=== PATIENT | female | born 1950 | race Caucasian/White ===

== ENCOUNTER → 2023-07-22 | Emergency (ER) | payer BC, MEDICAID, MEDICARE ==
[~2023-07-22] VITALS: Ht 167.6 cm; Wt 84.5 kg
[2023-07-22] VITALS (7 sets, daily range): BP systolic 129–162; BP diastolic 68–92; PULSE 78–85; RESP 14–16; TEMP 97.7; O2SAT 93–98
[~2023-07-22] MED LIST: ASPI81TA44 PO; CEPH500C2 PO; CYCL-1 PO; HYDR-3965 PO; HYDR25TA4 PO; IBUP-1985 PO; LISI20TA28 PO; MELO-102 PO; PRAV20TA4 PO; ceFAZolin 1000mg inj ONE; famotidine 20mg tablet PO ONE; fentaNYL/PF 50MCG/1 ML 2ML syringe IV PRN; fentaNYL/PF 50MCG/1 ML 2ML syringe ONE; hydrALAZINE 20mg/ml inj. IV PRN; iohexol 300 MG/1 ML 50ml polymer ONE; labetalol 20mg/4ml (5mg/ml) syringe IV PRN; meperidine/PF 25mg/ml syringe IV PRN; midazolam 1 mg/ML 2ml injection ONE; morphine 2 MG/ML inj. syringe IV PRN; morphine 4 MG/ML inj SYRINge IV ONE; morphine 4 MG/ML inj SYRINge IV PRN; normal saline 1000ml 1,000 ML IV ONE; ondansetron/PF 4mg/2ml inj IV ONE; ondansetron/PF 4mg/2ml inj IV PRN; potassium Cl 20 mEq SR tablet PO STA; proCHLORperazine 10 MG/2 ml inj IV PRN; propofol inj 20 ML IV ONE; ringers solution, lacted 1,000 ML IV ONE; ringers solution, lacted 1,000 ML IV SCH; sevoflurane 250ml liquid IH ONE
[2023-07-22 08:27] LABS: BASOPHILS % (AUTO) 0.2 % (0-1); EOSINOPHILS # (AUTO) 0.1 X10'3 (0-0.9); EOSINOPHILS % (AUTO) 0.4 % (0-6); HEMATOCRIT 42.5 % (35.0-45.0); HEMOGLOBIN 13.8 g/dl (12.0-16.0); LYMPHOCYTES # (AUTO) 1.4 X10'3 (1.1-4.8); LYMPHOCYTES % (AUTO) 9.1 % (21-51); MEAN CORPUSCULAR HEMOGLOBIN 25.2 PG (27.0-31.0); MEAN CORPUSCULAR HGB CONC 32.5 g/dL (33.0-36.5); MEAN CORPUSCULAR VOLUME 77.6 FL (78-98); MEAN PLATELET VOLUME 7.9 FL (7.4-10.4); MONOCYTES # (AUTO) 0.8 X10'3 (0-0.9); MONOCYTES % (AUTO) 5.2 % (2-12); NEUTROPHILS # (AUTO) 12.8 X10'3 (1.8-7.7); NEUTROPHILS % (AUTO) 85.1 % (42-75); PLATELET COUNT 469 X10'3 (140-440); RED BLOOD COUNT 5.48 X10'6 (4.20-5.60); RED CELL DISTRIBUTION WIDTH 17.3 % (11.5-14.5); WHITE BLOOD COUNT 15.1 X10'3 (4.5-11.0)
[2023-07-22 08:39] LABS: BILIRUBIN,URINE NEGATIVE (Neg); CLARITY,URINE SLIGHTLY CLOUDY (Clear); COLOR,URINE YELLOW (Yellow); GLUCOSE, URINE >=1000 mg/dl (Neg); KETONES,URINE NEGATIVE (Neg); LEUKOCYTE ESTERASE ,URINE NEGATIVE (Neg); NITRITES, URINE NEGATIVE (Neg); OCCULT BLOOD,URINE SMALL (Neg); PH,URINE 5.5 (4.8-8.0); PROTEIN,URINE NEGATIVE (Neg); UROBILINOGEN,URINE 0.2 E.U/dL (0.2-1.0)
[2023-07-22 08:42] LABS: UA COLLECTION TYPE CLN CATCH MIDSTREAM
[2023-07-22 08:59] LABS: ALANINE AMINOTRANSFERASE 19 U/L (12-78); ALBUMIN 4.1 G/DL (3.4-5.0); ALBUMIN/GLOBULIN RATIO 1.1 (1.1-1.5); ALKALINE PHOSPHATASE 84 IU/L (46-116); ANION GAP 12 (8-16); ASPARTATE AMINO TRANSFERASE 18 U/L (10-37); BILIRUBIN,TOTAL 0.6 MG/DL (0.1-1.0); BLOOD UREA NITROGEN 17 MG/DL (7-18); BUN/CREATININE RATIO 16.2 (10.0-20.0); CALCIUM 10.5 MG/DL (8.5-10.1); CHLORIDE 101 MMOL/L (99-107); CREATININE 1.05 MG/DL (0.40-0.90); GLUCOSE 146 MG/DL (70-104); LIPASE 109 U/L (73-393); SODIUM 138 MMOL/L (135-145); TOTAL CARBON DIOXIDE 24.9 MMOL/L (24-32); TOTAL PROTEIN 7.8 G/DL (6.4-8.2); eCRCL 46 ML/MIN; eGFR 52 ML/MIN
[2023-07-22 09:04] LABS: POTASSIUM 2.9 MMOL/L (3.5-5.1)
[2023-07-22 09:20] LABS: HYALINE CASTS 0-3 /LPF (NEGATIVE); MUCUS STRANDS FEW /LPF (Neg); SQUAMOUS EPITHELIAL CELL,UR MODERATE /LPF (FEW)
[2023-07-22 09:21] LABS: BACTERIA,URINE 1+ /HPF (Neg); TRANSITIONAL EPI CELLS,URINE FEW /HPF
--- NOTE | 2023-07-22 10:53 | NUR ---
pt ambulated to bathroom unassisted
--- NOTE | 2023-07-22 14:48 | NUR ---
PATIENT RECEIVED FROM OR. RESPONDS TO VERBAL COMMANDS. VSS ON 10L MASK AT 98% SATURATION. RIGHT AC WITH LR RUNNING. NO DRESSING SITES DUE TO CYSTOSCOPY.
--- NOTE | 2023-07-22 16:08 | NUR ---
ALL DISCHARGE CRITERIA HAS BEEN MET. VSS, PAIN AT TOLERABLE LEVEL. ABLE TO SAFELY AMBULATE AND TRANSFER SELF. VOIDED X2 IV TAKEN OUT WITHOUT ANY COMPLICATIONS. ALL DISCHARGE INSTRUCTIONS COVERED WITH PATIENT AND ALL QUESTIONS ANSWERED. PATIENT TAKEN OUT VIA WHEELCHAIR TO PERSONAL VEHICLE WHERE FAMILY/FRIEND DROVE PATIENT HOME.
== END | disposition home or self-care (01) ==
LOC: ER 06:41
DX: N20.0 Calculus of kidney (principal); N13.2 Hydronephrosis with renal and ureteral calculous obstruction; Z88.0 Allergy status to penicillin; Z79.82 Long term (current) use of aspirin; Z79.899 Other long term (current) drug therapy
CPT/HCPCS: 36415; 52005; 71045; 74176; 76000; 80053; 81001; 83690; 84132; 84145; 85025; 87088; 93005; 96361; 96374; 96375; 99285; C1758; C1769; C2617; J0690; J2250; J2270; J2405; J2704; J3010; J7030; J7120; Q9967; Z7506; Z7512; A4618

== ENCOUNTER 2024-04-14 16:32 | Outpatient (CLI) | payer MEDICARE, MEDICAID ==
[~2024-04-14 16:32] MED LIST changes: -CEPH500C2 PO; -ceFAZolin 1000mg inj ONE; -famotidine 20mg tablet PO ONE; -fentaNYL/PF 50MCG/1 ML 2ML syringe IV PRN; -fentaNYL/PF 50MCG/1 ML 2ML syringe ONE; -hydrALAZINE 20mg/ml inj. IV PRN; -iohexol 300 MG/1 ML 50ml polymer ONE; -labetalol 20mg/4ml (5mg/ml) syringe IV PRN; -meperidine/PF 25mg/ml syringe IV PRN; -midazolam 1 mg/ML 2ml injection ONE; -morphine 2 MG/ML inj. syringe IV PRN; -morphine 4 MG/ML inj SYRINge IV ONE; -morphine 4 MG/ML inj SYRINge IV PRN; -normal saline 1000ml 1,000 ML IV ONE; -ondansetron/PF 4mg/2ml inj IV ONE; -ondansetron/PF 4mg/2ml inj IV PRN; -potassium Cl 20 mEq SR tablet PO STA; -proCHLORperazine 10 MG/2 ml inj IV PRN; -propofol inj 20 ML IV ONE; -ringers solution, lacted 1,000 ML IV ONE; -ringers solution, lacted 1,000 ML IV SCH; -sevoflurane 250ml liquid IH ONE
== END 2024-04-14 23:59 | disposition home or self-care (01) ==
LOC: RAD 16:32
PROVIDERS: ATTEND Specialist
DX: M19.011 Primary osteoarthritis, right shoulder (principal); M25.511 Pain in right shoulder; M25.811 Other specified joint disorders, right shoulder
CPT/HCPCS: 73200

== ENCOUNTER 2024-05-03 07:21 | Day surgery (SDC) | payer MEDICARE, MEDICAID ==
[2024-04-29 16:17] LABS: BILIRUBIN,URINE NEGATIVE (Neg); CLARITY,URINE CLEAR (Clear); COLOR,URINE YELLOW (Yellow); GLUCOSE, URINE NEGATIVE (Neg); KETONES,URINE TRACE mg/dl (Neg); LEUKOCYTE ESTERASE ,URINE NEGATIVE (Neg); NITRITES, URINE NEGATIVE (Neg); OCCULT BLOOD,URINE NEGATIVE (Neg); PH,URINE 5.5 (4.8-8.0); PROTEIN,URINE NEGATIVE (Neg); UROBILINOGEN,URINE 0.2 E.U/dL (0.2-1.0)
[2024-04-29 16:19] LABS: UA COLLECTION TYPE CLN CATCH MIDSTREAM
[2024-04-29 16:29] LABS: APTT 29 SECONDS (22-32); PROTHROMBIN TIME 10.9 SECONDS (9.0-12.0)
[~2024-05-03] VITALS: Ht 167.6 cm; Wt 78.0 kg
[2024-05-03] VITALS (17 sets, daily range): BP systolic 110–174; BP diastolic 49–86; PULSE 55–70; RESP 12–18; TEMP 97.3–98.4; O2SAT 90–98
[2024-05-03] MEDS: tranexamic acid inj. 1,000 MG in normal saline IV soln 100ML IV ONE (05:30)
[2024-05-03] MEDS: cefazolin 2gm/D5W 100mL 100 ML IV ONE (05:30)
[2024-05-03] MEDS: famotidine 20mg tablet PO ONE (05:30)
[~2024-05-03 07:21] MED LIST changes: +ASHWAGANDA; -ASPI81TA44 PO; +ATOR40TA72 PO; +CALCIUM MAGNESIUM; -CYCL-1 PO; +DULA0.75 SQ; +ELDERBERRY; +EMPA25TA PO; -HYDR-3965 PO; -HYDR25TA4 PO; -IBUP-1985 PO; +LIONS MANE; +METF-900 PO; -PRAV20TA4 PO; +VITAMIN B 12; +VITAMIN B 6; +VITAMIN C; +VITAMIN E
[2024-05-03] MEDS: vancomycin 1,000mg inj ONE (08:28)
[2024-05-03] MEDS: gelatin sponge, absorbable (Gelfoam 100) sponge TP ONE (09:17)
[2024-05-03] MEDS: Thrombin (Bovine) 5,000 unit vial TP ONE (09:17)
[2024-05-03] MEDS ORDERED: bisacodyl 10mg suppository rectal RC PRN (09:50)
[2024-05-03] MEDS ORDERED: magnesium hydroxide 30ml (MOM) UD suspension PO PRN (09:50)
[2024-05-03] MEDS ORDERED: ondansetron/PF 4mg/2ml inj IV PRN ×2 (09:50→12:20)
[2024-05-03] MEDS ORDERED: naloxone 0.4 mg/ml inj IV PRN (09:50)
[2024-05-03] MEDS ORDERED: diphenhydrAMINE 25mg capsule PO PRN (09:50)
[2024-05-03] MEDS ORDERED: acetaminophen 325mg tablet PO PRN (09:50)
[2024-05-03] MEDS ORDERED: sevoflurane 250ml liquid IH ONE (09:54)
[2024-05-03] MEDS ORDERED: propofol inj 20 ML IV ONE (09:55)
[2024-05-03] MEDS ORDERED: midazolam 1 mg/ML 2ml injection ONE (09:55)
[2024-05-03] MEDS ORDERED: fentaNYL/PF 50MCG/1 ML 2ML syringe ONE ×2 (09:55→11:18)
[2024-05-03] MEDS ORDERED: ROPIVAcaine 0.5% (5mg/ml) 30ml vial ONE (10:03)
[2024-05-03] MEDS: vancomycin 1,000mg inj IVT ONE (10:57)
[2024-05-03] MEDS ORDERED: ondansetron/PF 4mg/2ml inj ONE (11:49)
[2024-05-03] MEDS ORDERED: dexamethasone sod phosphate 4mg/ml inj. ONE (11:49)
[2024-05-03] MEDS: ringers solution, lacted 1,000 ML IV SCH ×2 (12:08→12:20)
[2024-05-03] MEDS: methylene blue (5mg/ml) 50mg/10ml ampul IV ONE (12:08)
[2024-05-03] MEDS ORDERED: proCHLORperazine 10 MG/2 ml inj IV PRN (12:20)
[2024-05-03] MEDS ORDERED: morphine 4 MG/ML inj SYRINge IV PRN (12:20)
[2024-05-03] MEDS ORDERED: meperidine/PF 25mg/ml syringe IV PRN ×3 (12:20)
[2024-05-03] MEDS ORDERED: morphine 2 MG/ML inj. syringe IV PRN (12:20)
[2024-05-03 14:56] LABS: BASOPHILS % (AUTO) 0.2 % (0-1); EOSINOPHILS % (AUTO) 0.1 % (0-6); HEMATOCRIT 36.2 % (35.0-45.0); HEMOGLOBIN 11.5 g/dl (12.0-16.0); LYMPHOCYTES # (AUTO) 0.8 X10'3 (1.1-4.8); LYMPHOCYTES % (AUTO) 4.9 % (21-51); MEAN CORPUSCULAR HGB CONC 31.7 g/dL (33.0-36.5); MEAN CORPUSCULAR VOLUME 69.4 FL (78-98); MEAN PLATELET VOLUME 7.6 FL (7.4-10.4); MONOCYTES # (AUTO) 0.2 X10'3 (0-0.9); MONOCYTES % (AUTO) 1.4 % (2-12); NEUTROPHILS # (AUTO) 14.8 X10'3 (1.8-7.7); NEUTROPHILS % (AUTO) 93.4 % (42-75); PLATELET COUNT 340 X10'3 (140-440); RED BLOOD COUNT 5.21 X10'6 (4.20-5.60); RED CELL DISTRIBUTION WIDTH 21.5 % (11.5-14.5); WHITE BLOOD COUNT 15.8 X10'3 (4.5-11.0)
[2024-05-03 15:11] LABS: ALANINE AMINOTRANSFERASE 24 U/L (12-78); ALBUMIN 3.6 G/DL (3.4-5.0); ALKALINE PHOSPHATASE 75 IU/L (46-116); ANION GAP 8 (8-16); ASPARTATE AMINO TRANSFERASE 20 U/L (10-37); BILIRUBIN,TOTAL 0.3 MG/DL (0.1-1.0); BLOOD UREA NITROGEN 20 MG/DL (7-18); BUN/CREATININE RATIO 32.8 (10.0-20.0); CALCIUM 9.1 MG/DL (8.5-10.1); CHLORIDE 106 MMOL/L (99-107); CREATININE 0.61 MG/DL (0.40-0.90); GLUCOSE 121 MG/DL (70-104); POTASSIUM 3.8 MMOL/L (3.5-5.1); SODIUM 142 MMOL/L (135-145); TOTAL CARBON DIOXIDE 27.7 MMOL/L (24-32); TOTAL PROTEIN 7.1 G/DL (6.4-8.2); eCRCL 79 ML/MIN; eGFR > 90 ML/MIN
[2024-05-03] MEDS ORDERED: DULAGLUTIDE 0.75 MG SQ SCH (15:25)
[2024-05-03] MEDS: potassium cl 20mEq in 1/2 NS 1,000 ML IV SCH (16:21)
[2024-05-03 16:58] LABS: ANISOCYTOSIS 3+; HYPOCHROMASIA 1+; MICROCYTOSIS 2+; PLATELET ESTIMATE NORMAL
[2024-05-03 16:59] LABS: TARGET CELLS FEW; TEAR DROP CELLS FEW
[2024-05-03] MEDS: cefazolin 2gm/D5W 100mL 100 ML IV SCH (19:25)
[2024-05-03] MEDS: METFORMIN HCL 500 MG PO SCH (20:00)
[2024-05-03] MEDS: lisinopril 20mg tablet PO SCH (20:24)
[2024-05-04 02:00] VITALS: BP 139/81; PULSE 71; RESP 16; TEMP 98.2; O2SAT 94
[2024-05-04] MEDS: HYDROcodone/acetaminophen 5mg/325mg tablet PO PRN ×2 (02:13→09:14)
[2024-05-04] MEDS: ketorolac tromethamine 15mg/ml inj. IV ONE (05:25)
[2024-05-04 06:00] VITALS: BP 148/74; PULSE 71; RESP 18; TEMP 97.1; O2SAT 97
[2024-05-04 07:39] LABS: BASOPHILS % (AUTO) 0.2 % (0-1); EOSINOPHILS % (AUTO) 0.2 % (0-6); HEMATOCRIT 31.4 % (35.0-45.0); HEMOGLOBIN 9.7 g/dl (12.0-16.0); LYMPHOCYTES # (AUTO) 2.2 X10'3 (1.1-4.8); LYMPHOCYTES % (AUTO) 15.5 % (21-51); MEAN CORPUSCULAR HEMOGLOBIN 21.3 PG (27.0-31.0); MEAN CORPUSCULAR VOLUME 68.8 FL (78-98); MEAN PLATELET VOLUME 8.2 FL (7.4-10.4); MONOCYTES # (AUTO) 1.5 X10'3 (0-0.9); MONOCYTES % (AUTO) 10.6 % (2-12); NEUTROPHILS # (AUTO) 10.3 X10'3 (1.8-7.7); NEUTROPHILS % (AUTO) 73.5 % (42-75); PLATELET COUNT 337 X10'3 (140-440); RED BLOOD COUNT 4.56 X10'6 (4.20-5.60)
[2024-05-04 07:51] LABS: % IRON SATURATION 5 % (11-46); IRON 18 UG/DL (49-151); TOTAL IRON BINDING CAPACITY 354 UG/DL (259-388)
[2024-05-04 08:05] LABS: ALANINE AMINOTRANSFERASE 23 U/L (12-78); ALBUMIN 3.1 G/DL (3.4-5.0); ALBUMIN/GLOBULIN RATIO 0.9 (1.1-1.5); ALKALINE PHOSPHATASE 64 IU/L (46-116); ANION GAP 8 (8-16); ASPARTATE AMINO TRANSFERASE 20 U/L (10-37); BILIRUBIN,TOTAL 0.4 MG/DL (0.1-1.0); BLOOD UREA NITROGEN 15 MG/DL (7-18); BUN/CREATININE RATIO 27.3 (10.0-20.0); CALCIUM 8.9 MG/DL (8.5-10.1); CHLORIDE 105 MMOL/L (99-107); CREATININE 0.55 MG/DL (0.40-0.90); GLUCOSE 106 MG/DL (70-104); POTASSIUM 3.6 MMOL/L (3.5-5.1); SODIUM 139 MMOL/L (135-145); TOTAL CARBON DIOXIDE 25.8 MMOL/L (24-32); TOTAL PROTEIN 6.4 G/DL (6.4-8.2); eCRCL 88 ML/MIN; eGFR > 90 ML/MIN
[2024-05-04] MEDS: DULAGLUTIDE 0.75 MG SQ SCH (09:00)
[2024-05-04 09:09] VITALS: BP_SYST 148; PULSE 71
[2024-05-04] MEDS: MELOXICAM 7.5 MG TABLET PO SCH (09:09)
[2024-05-04] MEDS: aspirin 325mg tablet PO SCH (09:09)
[2024-05-04] MEDS: atorvastatin 20mg tablet PO SCH (09:09)
[2024-05-04] MEDS: EMPAGLIFLOZIN 25 MG TABLET PO SCH (09:09)
[2024-05-04] MEDS: iron sucrose complex injection 500 MG in normal saline 250ml IV soln 250 ML IV ONE (11:04)
[2024-05-04 15:26] VITALS: RESP 16
== END 2024-05-04 15:50 ==
LOC: PAS 07:21 → ORTHO 4S 09:55 → PAS 05-04 15:50
PROVIDERS: ATTEND Specialist
DX: M19.011 Primary osteoarthritis, right shoulder (principal); G89.18 Other acute postprocedural pain; I10 Essential (primary) hypertension; E11.9 Type 2 diabetes mellitus without complications; E78.00 Pure hypercholesterolemia, unspecified; G47.30 Sleep apnea, unspecified; M19.90 Unspecified osteoarthritis, unspecified site; Z87.891 Personal history of nicotine dependence; Z79.84 Long term (current) use of oral hypoglycemic drugs; Z79.899 Other long term (current) drug therapy; Z90.49 Acquired absence of other specified parts of digestive tract; Z96.612 Presence of left artificial shoulder joint; Z96.653 Presence of artificial knee joint, bilateral; Z98.890 Other specified postprocedural states; Z88.0 Allergy status to penicillin; Z82.49 Family history of ischemic heart disease and other diseases of the circulatory system; Z83.3 Family history of diabetes mellitus; Z82.5 Family history of asthma and other chronic lower respiratory diseases
CPT/HCPCS: 23430; 23472; 36415; 64415; 71046; 73030; 80053; 81003; 82948; 83036; 83540; 83550; 85025; 85610; 85730; 86885; 86900; 86901; 87081; 97110; 97161; 97530; A4615; A4618; A6402; A6455; A7000; C1776; J0690; J1100; J1756; J1885; J2250; J2405; J2704; J2795; J3010; J3370; J3480; J3490; J7030; J7050; J7120; Z7506; Z7508; Z7512; Z7610; 76000; 85008; A6449; G0378; Q9968

== ENCOUNTER 2024-10-24 06:03 | Day surgery (SDC) | payer MEDICARE, MEDICAID ==
[2024-10-18 11:32] LABS: BASOPHILS # (AUTO) 0.1 X10'3 (0-0.2); BASOPHILS % (AUTO) 0.6 % (0-1); EOSINOPHILS # (AUTO) 0.4 X10'3 (0-0.9); EOSINOPHILS % (AUTO) 3.8 % (0-6); HEMATOCRIT 45.5 % (35.0-45.0); HEMOGLOBIN 14.8 g/dl (12.0-16.0); LYMPHOCYTES # (AUTO) 2.1 X10'3 (1.1-4.8); LYMPHOCYTES % (AUTO) 20.4 % (21-51); MEAN CORPUSCULAR HEMOGLOBIN 26.4 PG (27.0-31.0); MEAN CORPUSCULAR HGB CONC 32.7 g/dL (33.0-36.5); MEAN CORPUSCULAR VOLUME 80.8 FL (78-98); MEAN PLATELET VOLUME 8.2 FL (7.4-10.4); MONOCYTES # (AUTO) 0.8 X10'3 (0-0.9); MONOCYTES % (AUTO) 7.8 % (2-12); NEUTROPHILS # (AUTO) 6.9 X10'3 (1.8-7.7); NEUTROPHILS % (AUTO) 67.4 % (42-75); PLATELET COUNT 367 X10'3 (140-440); RED BLOOD COUNT 5.62 X10'6 (4.20-5.60); RED CELL DISTRIBUTION WIDTH 18.6 % (11.5-14.5); WHITE BLOOD COUNT 10.2 X10'3 (4.5-11.0)
[2024-10-18 12:04] LABS: ALANINE AMINOTRANSFERASE 15 U/L (12-78); ALBUMIN 3.7 G/DL (3.4-5.0); ALBUMIN/GLOBULIN RATIO 0.9 (1.1-1.5); ALKALINE PHOSPHATASE 98 IU/L (46-116); ANION GAP 8 (8-16); ASPARTATE AMINO TRANSFERASE 18 U/L (10-37); BILIRUBIN,TOTAL 0.8 MG/DL (0.1-1.0); BLOOD UREA NITROGEN 20 MG/DL (7-18); CALCIUM 9.4 MG/DL (8.5-10.1); CHLORIDE 104 MMOL/L (99-107); CREATININE 0.74 MG/DL (0.40-0.90); GLUCOSE 93 MG/DL (70-104); POTASSIUM 3.6 MMOL/L (3.5-5.1); SODIUM 142 MMOL/L (135-145); TOTAL CARBON DIOXIDE 29.6 MMOL/L (24-32); TOTAL PROTEIN 7.9 G/DL (6.4-8.2); eGFR 77 ML/MIN
[2024-10-24] VITALS (7 sets, daily range): BP systolic 112–153; BP diastolic 72–96; PULSE 69–74; RESP 13–18; TEMP 98.3; O2SAT 95–98
[~2024-10-24] VITALS: Ht 165.1 cm; Wt 79.0 kg
[~2024-10-24 06:03] MED LIST changes: -ASHWAGANDA; -CALCIUM MAGNESIUM; -ELDERBERRY; -LIONS MANE; -VITAMIN B 12; -VITAMIN B 6; -VITAMIN C; -VITAMIN E
[2024-10-24] MEDS: ceFAZolin 2gm in dextrose, iso 50 ML IV ONE (06:27)
[2024-10-24] MEDS: ringers solution, lacted 1,000 ML IV SCH (06:33)
[2024-10-24] MEDS: famotidine 20mg tablet PO ONE (06:34)
[2024-10-24] MEDS ORDERED: BUPIVAcaine/PF 2.5mg/ml (0.25%) 10ml vial ONE ×2 (06:40→08:18)
[2024-10-24] MEDS ORDERED: LIDOcaine 1% (10mg/ml)w/preservative inj. 20ml MDV ONE (06:41)
[2024-10-24] MEDS ORDERED: LIDOcaine 2% (20mg/ml) 5ml vial ONE (06:46)
[2024-10-24] MEDS ORDERED: fentaNYL/PF 50MCG/1 ML 2ML syringe ONE (08:04)
[2024-10-24] MEDS ORDERED: midazolam 1 mg/ML 2ml injection ONE (08:05)
[2024-10-24] MEDS ORDERED: meperidine/PF 25mg/ml syringe IV PRN ×3 (08:10)
[2024-10-24] MEDS ORDERED: morphine 4 MG/ML inj SYRINge IV PRN (08:10)
[2024-10-24] MEDS ORDERED: morphine 2 MG/ML inj. syringe IV PRN (08:10)
[2024-10-24] MEDS ORDERED: proCHLORperazine 10 MG/2 ml inj IV PRN (08:10)
[2024-10-24] MEDS ORDERED: ondansetron/PF 4mg/2ml inj IV PRN (08:10)
[2024-10-24] MEDS ORDERED: ringers solution, lacted 1,000 ML IV SCH (08:10)
[2024-10-24] MEDS ORDERED: LIDOcaine 0.5% (5mg/ml) 50ml vial ONE (08:23)
[2024-10-24] MEDS ORDERED: propofol inj 20 ML IV ONE (09:06)
== END 2024-10-24 10:00 | disposition home or self-care (01) ==
LOC: PAS 06:03
PROVIDERS: ATTEND Orthopaedic Surgery Hand Surgery
DX: M18.12 Unilateral primary osteoarthritis of first carpometacarpal joint, left hand (principal); M19.139 Post-traumatic osteoarthritis, unspecified wrist; M25.532 Pain in left wrist; M19.042 Primary osteoarthritis, left hand; M19.071 Primary osteoarthritis, right ankle and foot; M19.011 Primary osteoarthritis, right shoulder; M19.041 Primary osteoarthritis, right hand; M43.16 Spondylolisthesis, lumbar region; M47.816 Spondylosis without myelopathy or radiculopathy, lumbar region; M16.12 Unilateral primary osteoarthritis, left hip; E78.00 Pure hypercholesterolemia, unspecified; Z79.899 Other long term (current) drug therapy; Z98.890 Other specified postprocedural states; Z88.0 Allergy status to penicillin; Z90.49 Acquired absence of other specified parts of digestive tract; Z96.651 Presence of right artificial knee joint
CPT/HCPCS: 25312; 25447; 80053; 82948; 85025; 93005; A4215; A4618; A6449; A7000; J0690; J2003; J2250; J2704; J3010; J3490; J7030; J7120; Z7506; Z7512; Z7610